=== PATIENT | male | born 1940 | race Caucasian/White ===

== ENCOUNTER → 2017-09-04 | Outpatient (CLI) | payer MEDICARE, BC ==
[~2017-09-04] MED LIST: Augmentin PO; HYDROCHLOROTH12.5 M3 PO; LIPITOR10 MG PO; Metamucil Packet PO
== END | disposition home or self-care (01) ==
LOC: CDC 10:52
DX: Z01.810 Encounter for preprocedural cardiovascular examination (principal); M50.30 Other cervical disc degeneration, unspecified cervical region; I10 Essential (primary) hypertension; R00.1 Bradycardia, unspecified; I45.81 Long QT syndrome; R94.31 Abnormal electrocardiogram [ECG] [EKG]
CPT/HCPCS: 93000

== ENCOUNTER 2017-09-23 11:00 | Emergency (ER) | payer OTHER, BC ==
[~2017-09-23] VITALS: Ht 180.3 cm; Wt 89.5 kg
[2017-09-23] MEDS ORDERED: INDOCIN50 MG PO (12:50)
[2017-09-23 13:00] VITALS: BP 122/68
== END 2017-09-23 13:13 | disposition home or self-care (01) ==
LOC: EME 11:00
DX: M10.9 Gout, unspecified (principal); M25.562 Pain in left knee; Z79.82 Long term (current) use of aspirin; E78.5 Hyperlipidemia, unspecified; I10 Essential (primary) hypertension; Z86.73 Personal history of transient ischemic attack (TIA), and cerebral infarction without residual deficits; Z96.641 Presence of right artificial hip joint
CPT/HCPCS: 73564; 93971; 99281; 99284